=== PATIENT | male | born 1955 | race Caucasian/White ===

== ENCOUNTER 2020-04-07 20:36 | Emergency (ER) | payer MEDICARE, OTHER ==
[~2020-04-07] VITALS: Ht 170.2 cm; Wt 71.4 kg
[2020-04-07 22:15] VITALS: BP 115/84
== END 2020-04-08 00:23 | disposition home or self-care (01) ==
LOC: EMS 20:36
DX: F20.9 Schizophrenia, unspecified (principal)
CPT/HCPCS: Z7502

== ENCOUNTER 2023-04-03 17:12 | Emergency (ER) | payer MEDICARE, OTHER ==
[~2023-04-03] VITALS: Ht 182.9 cm; Wt 86.4 kg
[2023-04-03 17:45] VITALS: TEMP 98
[2023-04-03] MEDS ORDERED: LORazepam 2 MG/ML VIAL IM ONE (17:45)
[2023-04-03] MEDS ORDERED: DiphenhydrAMINE HCL 50 MG/ML VIAL IM ONE (17:45)
[2023-04-03] MEDS ORDERED: HALOPERIDOL LACTATE 5 MG/ML VIAL IM ONE (17:45)
[2023-04-03] MEDS ORDERED: PALI234D IM (17:56)
[2023-04-03] MEDS ORDERED: ACET-2247 PO (17:56)
[2023-04-03] MEDS ORDERED: DIVA500T53 PO (17:56)
[2023-04-03] MEDS ORDERED: QUET200T5 PO (17:56)
[2023-04-03] MEDS ORDERED: BISA10SU11 PR (17:56)
[2023-04-03] MEDS ORDERED: LEVO50 PO (17:56)
[2023-04-03 18:55] LABS: BASOPHILS % (AUTO) 0.4 % (0.0-2.0); EOSINOPHILS % (AUTO) 0.1 % (1.0-6.0); HEMATOCRIT 51.4 % (41-53); HEMOGLOBIN 17.3 g/dL (13.5-17.5); LYMPHOCYTES # (AUTO) 1.6 K/uL (1.0-4.8); LYMPHOCYTES % (AUTO) 19.5 % (22.0-44.0); MEAN CORPUSCULAR HEMOGLOBIN 33.9 pg (26.0-34.0); MEAN CORPUSCULAR HGB CONC 33.6 G/dL (31.0-37.0); MEAN CORPUSCULAR VOLUME 101 fL (80-100); MONOCYTES # (AUTO) 1.1 K/uL (0.1-1.0); MONOCYTES % (AUTO) 13.5 % (2.0-9.0); NEUTROPHILS # (AUTO) 5.5 K/uL (1.8-7.7); NEUTROPHILS % (AUTO) 66.5 % (40.0-70.0); PLATELET COUNT (AUTO) 239 K/uL (150-450); RED CELL DISTRIBUTION WIDTH 13.9 % (11.5-14.5)
[2023-04-03 19:00] LABS: ANION GAP 15 mmol/L (8-16); CARBON DIOXIDE 24 mmol/L (22-29); CHLORIDE 106 mmol/L (98-107); CREATININE 1.21 mg/dL (0.60-1.30); GLUCOSE,RANDOM 130 mg/dL (70-110); POTASSIUM 3.5 mmol/L (3.5-5.1); SODIUM SERUM 145 mmol/L (136-145)
[2023-04-03 19:01] LABS: CALCIUM, TOTAL 9.3 mg/dL (8.8-10.5); GLOMERULAR FILTR. RATE CALC 60 mL/min (>60)
[2023-04-03 19:06] LABS: ALANINE AMINOTRANSFERASE 7 U/L (12-78); ALBUMIN 3.5 g/dL (3.4-5.0); ALKALINE PHOSPHATASE 84 U/L (46-116); ASPARTATE AMINOTRANSFERASE 15 U/L (15-37); BILIRUBIN,TOTAL 0.6 mg/dL (0.1-1.0); TOTAL PROTEIN, SERUM 8.1 g/dL (6.4-8.2)
[2023-04-03] MEDS ORDERED: MELATONIN 5 MG TABLET PO ONE (20:00)
[2023-04-03] MEDS ORDERED: QUEtiapine FUMARATE 100 MG TABLET PO ONE (20:00)
[2023-04-03] MEDS ORDERED: DIVALPROEX SODIUM 500 MG ER TABLET PO ONE (20:00)
[2023-04-03] MEDS ORDERED: DIVA-112 PO (20:05)
[2023-04-03] MEDS ORDERED: CHLO100T36 PO (20:05)
[2023-04-03] MEDS ORDERED: QUET200T30 PO (20:05)
[2023-04-03] MEDS ORDERED: GABA600T10 PO (20:05)
[2023-04-03] MEDS ORDERED: ZOLPIDEM TARTRATE 10 MG TABLET PO ONE (22:00)
[2023-04-03] MEDS ORDERED: ZOLPIDEM TARTRATE 10 MG TABLET PO PRN (22:45)
[2023-04-03] MEDS ORDERED: LORazepam 2 MG TABLET PO PRN (22:45)
[2023-04-03] MEDS ORDERED: HALOPERIDOL 5 MG TABLET PO PRN (22:45)
[2023-04-04] MEDS ORDERED: DIVALPROEX SODIUM 500 MG ER TABLET PO ONE (15:30)
[2023-04-04] MEDS ORDERED: QUEtiapine FUMARATE 100 MG TABLET PO ONE (15:30)
[2023-04-04] MEDS ORDERED: LORazepam 2 MG/ML VIAL IM ONE (15:45)
[2023-04-04 15:48] VITALS: BP 130/81; PULSE 90; RESP 18
== END 2023-04-04 17:16 | disposition home or self-care (01) ==
LOC: EMS 17:59
DX: F20.0 Paranoid schizophrenia (principal); E78.00 Pure hypercholesterolemia, unspecified; I10 Essential (primary) hypertension; E03.9 Hypothyroidism, unspecified; Z88.0 Allergy status to penicillin; Z91.148 Patient's other noncompliance with medication regimen for other reason
CPT/HCPCS: 99285; 71045; 80053; 84484; 85025; 93005; 96372; G0480; J1200; J1630; J2060

== ENCOUNTER 2023-12-03 21:30 | Inpatient (IN) | payer MEDICARE, MEDICAID ==
[~2023-12-03] VITALS: Ht 180.3 cm; Wt 67.4 kg
[~2023-12-03 21:30] MED LIST: ARIP882S2 IM; LEVO50 PO; PARO10TA89 PO; VALP250C48 PO
[2023-12-03 22:17] LABS: COVID AG,FIA SOURCE NASAL SWAB
[2023-12-03 22:25] LABS: ANION GAP 10 mmol/L (8-16); CARBON DIOXIDE 26 mmol/L (22-29); CHLORIDE 103 mmol/L (98-107); CREATININE 0.91 mg/dL (0.60-1.30); GLOMERULAR FILTR. RATE CALC > 60 mL/min (>60); GLUCOSE,RANDOM 123 mg/dL (70-110); POTASSIUM 3.3 mmol/L (3.5-5.1); SODIUM SERUM 139 mmol/L (136-145); UREA NITROGEN, BLOOD 15 mg/dL (7-18)
[2023-12-03 22:30] LABS: ALANINE AMINOTRANSFERASE 15 U/L (12-78); ALBUMIN 3.4 g/dL (3.4-5.0); ALKALINE PHOSPHATASE 80 U/L (46-116); ASPARTATE AMINOTRANSFERASE 15 U/L (15-37); BILIRUBIN,TOTAL 0.4 mg/dL (0.1-1.0); TOTAL PROTEIN, SERUM 6.9 g/dL (6.4-8.2)
[2023-12-03 22:43] LABS: BASOPHILS % (AUTO) 0.5 % (0.0-2.0); EOSINOPHILS % (AUTO) 0.3 % (1.0-6.0); HEMATOCRIT 44.3 % (41-53); HEMOGLOBIN 15.4 g/dL (13.5-17.5); LYMPHOCYTES # (AUTO) 1.9 K/uL (1.0-4.8); LYMPHOCYTES % (AUTO) 19.8 % (22.0-44.0); MEAN CORPUSCULAR HEMOGLOBIN 35.5 pg (26.0-34.0); MEAN CORPUSCULAR HGB CONC 34.8 G/dL (31.0-37.0); MEAN CORPUSCULAR VOLUME 102 fL (80-100); MONOCYTES # (AUTO) 1.2 K/uL (0.1-1.0); MONOCYTES % (AUTO) 12.3 % (2.0-9.0); NEUTROPHILS # (AUTO) 6.6 K/uL (1.8-7.7); NEUTROPHILS % (AUTO) 67.1 % (40.0-70.0); PLATELET COUNT (AUTO) 238 K/uL (150-450); RED BLOOD CELL COUNT(AUTO) 4.35 MIL/uL (4.50-5.90); RED CELL DISTRIBUTION WIDTH 13.5 % (11.5-14.5); WHITE BLOOD COUNT (AUTO) 9.9 K/uL (4.5-11.0)
[2023-12-03 22:58] LABS: SARS-COV2 (COVID) ANTIGEN,FIA Negative (Negative)
[2023-12-03] MEDS ORDERED: HALOPERIDOL 5 MG TABLET PO PRN (23:15)
[2023-12-03 23:16] LABS: RBC MORPHOLOGY COMMENT ABNORMAL RBC MORPH
[2023-12-04 00:07] LABS: ALCOHOL, BLOOD (SERUM) < 3 mg/dL (0-10)
[2023-12-04] MEDS: POTASSIUM CHLORIDE 20 MEQ ER TABLET PO ONE (01:16)
[2023-12-04] MEDS: POTASSIUM CHLORIDE 10% 40 MEQ/30 ML LIQUID UDCUP PO ONE (01:26)
[2023-12-04] MEDS: DiphenhydrAMINE HCL 50 MG/ML VIAL IM ONE (04:49)
[2023-12-04] MEDS: LORazepam 2 MG/ML VIAL IM ONE (04:49)
[2023-12-04] MEDS: HALOPERIDOL LACTATE 5 MG/ML VIAL IM ONE (04:49)
[2023-12-04 05:46] LABS: APPEARANCE,URINE CLEAR (CLEAR); BILIRUBIN,URINE NEGATIVE (NEGATIVE); COLOR,URINE YELLOW (YELLOW); GLUCOSE, URINE (UA) NEGATIVE (NEGATIVE); KETONES,URINE NEGATIVE (NEGATIVE); LEUKOCYTE ESTERASE ,URINE LARGE (NEGATIVE); NITRATE,URINE POSITIVE (NEGATIVE); OCCULT BLOOD,URINE NEGATIVE (NEGATIVE); PH,URINE 5.5 (5.0-8.0); PH,URINE DRUG SCREEN 5.5 (5.0-8.0); PROTEIN,URINE TRACE mg/dL (NEGATIVE); SPECIFIC GRAVITIY, URINE 1.024 (1.003-1.030); UROBILINOGEN,URINE <=1.0 mg/dL (<=1.0)
[2023-12-04 06:03] LABS: ALCOHOL, URINE DRUG SCREEN NEGATIVE (NEGATIVE); AMPHET/METH SCREEN,URINE NEGATIVE (NEGATIVE); BARBITURATE SCREEN, URINE NEGATIVE (NEGATIVE); BENZODIAZEPINES SCREEN,URINE NEGATIVE (NEGATIVE); CANNABINOID SCREEN,URINE NEGATIVE (NEGATIVE); COCAINE SCREEN,URINE NEGATIVE (NEGATIVE); METHADONE SCREEN, URINE NEGATIVE (NEGATIVE); OPIATE SCREEN,URINE NEGATIVE (NEGATIVE); PHENCYCLIDINE SCREEN,URINE NEGATIVE (NEGATIVE)
[2023-12-04 06:14] LABS: BACTERIA,URINE Moderate /HPF (None Seen); SQUAMOUS EPITHELIAL CELL,UR Few /LPF (None Seen)
[2023-12-04] MEDS ORDERED: ONDANSETRON HCL 4 MG TABLET PO PRN (07:00)
[2023-12-04] MEDS ORDERED: MAGNESIUM HYDROXIDE SUSPENSION 30 ML UDCUP PO PRN (07:00)
[2023-12-04] MEDS ORDERED: DOCUSATE SODIUM 100 MG CAPSULE PO PRN (07:00)
[2023-12-04] MEDS ORDERED: IBUPROFEN 400 MG TABLET PO PRN (07:00)
[2023-12-04] MEDS ORDERED: NICOTINE 14 MG/24 HOUR PATCH TD PRN (07:00)
[2023-12-04] MEDS ORDERED: MAG HYDROX/ALUMINUM HYD/SIMETH ES 30 ML SUSPENSION UDCUP PO PRN (07:00)
[2023-12-04] MEDS ORDERED: GuaiFENesin/D-METHORPHAN [SUGAR-FREE] 200-20MG/10 ML SYRUP UDCUP PO PRN (07:00)
[2023-12-04] MEDS ORDERED: LEVOTHYROXINE SODIUM 50 MCG TABLET PO SCH (07:00)
[2023-12-04] MEDS ORDERED: ALBUTEROL SULFATE HFA 90 MCG/PUFF 8 GM INHALER IH PRN (07:00)
[2023-12-04] MEDS ORDERED: ACETAMINOPHEN 325 MG TABLET PO PRN (07:00)
[2023-12-04] MEDS ORDERED: PETROLATUM,WHITE 28 GM JELLY TP PRN (07:00)
[2023-12-04] MEDS ORDERED: CloNIDine HCL 0.1 MG TABLET PO PRN (07:00)
[2023-12-04] MEDS ORDERED: LOPERAMIDE HCL 2 MG CAPSULE PO PRN (07:00)
[2023-12-04 10:20] VITALS: BP 123/72; PULSE 89; RESP 16; TEMP 97.7; O2SAT 98
[2023-12-04 12:09] VITALS: BP 123/72; PULSE 89; RESP 16; TEMP 97.7
[2023-12-04] MEDS: CIPROFLOXACIN HCL 500 MG TABLET PO SCH (17:09)
[2023-12-04] MEDS: PARoxetine HCL 10 MG TABLET PO SCH (17:30)
[2023-12-04] MEDS: VALPROIC ACID 250 MG/5 ML SOLUTION UDCUP PO SCH (21:00)
[2023-12-05] MEDS: LEVOTHYROXINE SODIUM 50 MCG TABLET PO SCH (06:56)
[2023-12-05] MEDS ORDERED: VALPROIC ACID 250 MG/5 ML SOLUTION UDCUP PO ONE (15:00)
[2023-12-05] MEDS ORDERED: HALOPERIDOL LACTATE 5 MG/ML VIAL IM PRN (15:00)
[2023-12-05 21:00] VITALS: BP 114/73; PULSE 74; RESP 18; TEMP 97.6
[2023-12-06 10:09] VITALS: BP 96/58; PULSE 79; RESP 19; TEMP 98.4; O2SAT 98
[2023-12-06 21:05] VITALS: BP 102/71; PULSE 62; RESP 18; TEMP 97.1; O2SAT 97
[2023-12-07 07:36] LABS: THYROID STIMULATING HORMONE 3.62 uIU/mL (0.36-3.74)
[2023-12-07 07:38] LABS: CHOL/HDL RATIO 3.4 (4.2-7.3)
[2023-12-07 07:39] LABS: HEMOGLOBIN A1C 4.9 % (3.8-5.6)
[2023-12-07] MEDS: HALOPERIDOL LACTATE 5 MG/ML VIAL IM PRN (11:54)
[2023-12-07 21:30] VITALS: BP 95/64; PULSE 66; RESP 18; TEMP 97.8
[2023-12-08 12:18] VITALS: RESP 18
[2023-12-08 22:13] VITALS: BP 95/67; PULSE 98; RESP 18; TEMP 97.4
[2023-12-09 09:37] VITALS: BP 81/17; PULSE 81; RESP 17; TEMP 97.7
[2023-12-10] MEDS: LORazepam 2 MG TABLET PO PRN (00:37)
[2023-12-10 08:00] VITALS: BP 117/69; PULSE 103; RESP 18; TEMP 96
[2023-12-10 20:52] VITALS: RESP 18; TEMP 97.4
[2023-12-11 20:58] VITALS: RESP 18
[2023-12-12 11:56] VITALS: RESP 20
[2023-12-13 09:50] VITALS: RESP 18
[2023-12-13] MEDS ORDERED: LORazepam 2 MG/ML VIAL ONE (10:52)
[2023-12-13] MEDS ORDERED: DiphenhydrAMINE HCL 50 MG/ML VIAL ONE (10:53)
[2023-12-13] MEDS: DiphenhydrAMINE HCL 50 MG/ML VIAL IM ONE (11:04)
[2023-12-13] MEDS: LORazepam 2 MG/ML VIAL IM ONE (11:05)
[2023-12-13] MEDS: HALOPERIDOL LACTATE 5 MG/ML VIAL IM ONE (11:06)
[2023-12-13] MEDS: FluPHENAZine HCL 2.5 MG/ML INJ IM PRN (20:44)
[2023-12-13 21:09] VITALS: BP 97/60; PULSE 80; RESP 18; TEMP 97.9
[2023-12-14 09:01] VITALS: RESP 18
[2023-12-14 21:34] VITALS: BP 112/64; PULSE 94; RESP 18; TEMP 98
[2023-12-15 21:20] VITALS: RESP 18
[2023-12-16 09:51] VITALS: RESP 18; TEMP 97.6
[2023-12-16 21:07] VITALS: BP 93/64; PULSE 85; RESP 18; TEMP 97.2
[2023-12-17 08:00] VITALS: BP 101/62; PULSE 80; RESP 18; TEMP 97.1
[2023-12-17] MEDS: ARIPiprazole LAUROXIL ER SUSPENSION 882 MG/3.2 ML SYRINGE IM SCH (10:11)
[2023-12-17 23:04] VITALS: RESP 18
[2023-12-18 09:47] VITALS: BP 142/74; PULSE 72; RESP 18; TEMP 96.2
[2023-12-18 21:43] VITALS: RESP 18
[2023-12-19 11:18] VITALS: RESP 18
[2023-12-20 08:10] VITALS: BP 110/77; PULSE 93; RESP 18; TEMP 98.3
[2023-12-20 22:11] VITALS: BP 135/90; PULSE 99; RESP 19; TEMP 97.6
[2023-12-21 10:35] VITALS: RESP 18; TEMP 98
[2023-12-21 21:54] VITALS: RESP 18
[2023-12-22 09:00] VITALS: RESP 18
[2023-12-22 20:59] VITALS: RESP 18
[2023-12-23 08:00] VITALS: BP 120/74; PULSE 100; RESP 17; TEMP 97.9
[2023-12-25 18:00] VITALS: BP 101/59; TEMP 97.6
[2023-12-25 21:05] VITALS: BP 101/60; PULSE 68; RESP 18; TEMP 97.5
[2023-12-25] MEDS: ZOLPIDEM TARTRATE 10 MG TABLET PO PRN (21:44)
[2023-12-26 09:05] VITALS: RESP 19; TEMP 97
[2023-12-26 22:11] VITALS: RESP 18
[2023-12-27 11:08] VITALS: BP 107/59; PULSE 68; RESP 18; TEMP 97.3
[2023-12-27] MEDS ORDERED: FluPHENAZine HCL 2.5 MG/ML INJ IM PRN (13:45)
[2023-12-27] MEDS: FluPHENAZine HCL 5 MG TABLET PO SCH (16:04)
[2023-12-27 20:07] VITALS: BP 105/58; PULSE 88; RESP 20; TEMP 98
[2023-12-28 08:45] VITALS: RESP 18
[2023-12-28 21:12] VITALS: BP 153/96; PULSE 67; RESP 18; TEMP 97.3
[2023-12-29 13:18] VITALS: PULSE 87; TEMP 97.8
[2023-12-29] MEDS: FluPHENAZine DECANOATE 25 MG/ML IM SCH (18:38)
[2023-12-29 20:51] VITALS: BP 123/74; PULSE 62; RESP 18
[2023-12-30 08:00] VITALS: BP 122/69; PULSE 68; RESP 18; TEMP 98
[2023-12-30 21:00] VITALS: RESP 18
[2023-12-31 09:29] VITALS: RESP 18
== END 2023-12-31 18:31 | DRG 885 ==
LOC: EMS 21:32 → 3EX 12-04 03:15 → UNDOADMIN 12-04 03:15 → 3EX 12-04 03:16 → 3EI 12-15 15:01
PROVIDERS: ADMIT Psychiatry & Neurology Psychiatry; ATTEND Psychiatry & Neurology Psychiatry
PROC: GZHZZZZ Group Psychotherapy (ICD-10-PCS; principal; 2023-12-04)
PROC: GZ56ZZZ Individual Psychotherapy, Supportive (ICD-10-PCS; 2023-12-04)
DX: F25.0 Schizoaffective disorder, bipolar type (principal); E03.9 Hypothyroidism, unspecified; G20.A1 Parkinson's disease without dyskinesia, without mention of fluctuations; Z20.822 Contact with and (suspected) exposure to COVID-19; E78.00 Pure hypercholesterolemia, unspecified; I10 Essential (primary) hypertension; E87.6 Hypokalemia; R73.9 Hyperglycemia, unspecified; Z79.899 Other long term (current) drug therapy; Z88.8 Allergy status to other drugs, medicaments and biological substances; Z88.0 Allergy status to penicillin
CPT/HCPCS: 80053; 80061; 80307; 81001; 83036; 84132; 84443; 85025; 87081; 87086; 87186; 99285; G0378; G0480; J1200; J1630; J2060; J2680; J3490; Q9967

== ENCOUNTER 2024-02-09 15:27 | Inpatient (IN) | payer MEDICARE, MEDICAID ==
[~2024-02-09] VITALS: Ht 170.2 cm; Wt 72.2 kg
[~2024-02-09 15:27] MED LIST changes: +FLUP25VI5 IM; -PARO10TA89 PO; -VALP250C48 PO
[2024-02-09 18:16] LABS: BASOPHILS % (AUTO) 0.6 % (0.0-2.0); EOSINOPHILS % (AUTO) 1.5 % (1.0-6.0); HEMATOCRIT 45.1 % (41-53); HEMOGLOBIN 15.6 g/dL (13.5-17.5); LYMPHOCYTES # (AUTO) 2.3 K/uL (1.0-4.8); MEAN CORPUSCULAR HEMOGLOBIN 35.2 pg (26.0-34.0); MEAN CORPUSCULAR HGB CONC 34.6 G/dL (31.0-37.0); MEAN CORPUSCULAR VOLUME 102 fL (80-100); MONOCYTES # (AUTO) 0.6 K/uL (0.1-1.0); MONOCYTES % (AUTO) 8.9 % (2.0-9.0); NEUTROPHILS # (AUTO) 3.9 K/uL (1.8-7.7); PLATELET COUNT (AUTO) 240 K/uL (150-450); RED BLOOD CELL COUNT(AUTO) 4.43 MIL/uL (4.50-5.90); RED CELL DISTRIBUTION WIDTH 13.3 % (11.5-14.5); WHITE BLOOD COUNT (AUTO) 6.9 K/uL (4.5-11.0)
[2024-02-09 18:26] LABS: ANION GAP 9 mmol/L (8-16); CALCIUM, TOTAL 8.9 mg/dL (8.8-10.5); CARBON DIOXIDE 27 mmol/L (22-29); CHLORIDE 103 mmol/L (98-107); CREATININE 0.82 mg/dL (0.60-1.30); GLOMERULAR FILTR. RATE CALC > 60 mL/min (>60); GLUCOSE,RANDOM 101 mg/dL (70-110); POTASSIUM 3.7 mmol/L (3.5-5.1); SODIUM SERUM 139 mmol/L (136-145); UREA NITROGEN, BLOOD 16 mg/dL (7-18)
[2024-02-09 18:29] LABS: ALCOHOL, BLOOD (SERUM) < 3 mg/dL (0-10)
[2024-02-09 18:41] LABS: ALANINE AMINOTRANSFERASE 13 U/L (12-78); ALBUMIN 3.6 g/dL (3.4-5.0); ALKALINE PHOSPHATASE 99 U/L (46-116); ASPARTATE AMINOTRANSFERASE 14 U/L (15-37); BILIRUBIN,TOTAL 0.4 mg/dL (0.1-1.0); THYROID STIMULATING HORMONE 6.84 uIU/mL (0.36-3.74); TOTAL PROTEIN, SERUM 7.4 g/dL (6.4-8.2)
[2024-02-09 18:55] LABS: APPEARANCE,URINE CLEAR (CLEAR); BILIRUBIN,URINE NEGATIVE (NEGATIVE); COLOR,URINE LIGHT YELLOW (YELLOW); GLUCOSE, URINE (UA) NEGATIVE (NEGATIVE); KETONES,URINE NEGATIVE (NEGATIVE); LEUKOCYTE ESTERASE ,URINE NEGATIVE (NEGATIVE); NITRATE,URINE NEGATIVE (NEGATIVE); OCCULT BLOOD,URINE NEGATIVE (NEGATIVE); PH,URINE 5.5 (5.0-8.0); PH,URINE DRUG SCREEN 5.5 (5.0-8.0); PROTEIN,URINE NEGATIVE (NEGATIVE); SPECIFIC GRAVITIY, URINE 1.015 (1.003-1.030); UROBILINOGEN,URINE <=1.0 mg/dL (<=1.0)
[2024-02-09 19:02] LABS: ALCOHOL, URINE DRUG SCREEN NEGATIVE (NEGATIVE); AMPHET/METH SCREEN,URINE NEGATIVE (NEGATIVE); BARBITURATE SCREEN, URINE NEGATIVE (NEGATIVE); BENZODIAZEPINES SCREEN,URINE NEGATIVE (NEGATIVE); CANNABINOID SCREEN,URINE NEGATIVE (NEGATIVE); COCAINE SCREEN,URINE NEGATIVE (NEGATIVE); METHADONE SCREEN, URINE NEGATIVE (NEGATIVE); OPIATE SCREEN,URINE NEGATIVE (NEGATIVE); PHENCYCLIDINE SCREEN,URINE NEGATIVE (NEGATIVE)
[2024-02-09 19:49] LABS: COVID AG,FIA SOURCE NPH
[2024-02-09 20:14] LABS: SARS-COV2 (COVID) ANTIGEN,FIA Negative (Negative)
[2024-02-10 06:30] VITALS: O2SAT 97
[2024-02-10] MEDS ORDERED: ONDANSETRON 4 MG TABLET PO PRN (14:00)
[2024-02-10] MEDS ORDERED: LOPERAMIDE HCL 2 MG CAPSULE PO PRN (14:00)
[2024-02-10] MEDS ORDERED: PETROLATUM,WHITE 28 GM JELLY TP PRN (14:00)
[2024-02-10] MEDS ORDERED: DOCUSATE SODIUM 100 MG CAPSULE PO PRN (14:00)
[2024-02-10] MEDS ORDERED: CloNIDine HCL 0.1 MG TABLET PO PRN (14:00)
[2024-02-10] MEDS ORDERED: ALBUTEROL SULFATE HFA 90 MCG/PUFF 8 GM INHALER IH PRN (14:00)
[2024-02-10] MEDS ORDERED: NICOTINE 14 MG/24 HOUR PATCH TD PRN (14:00)
[2024-02-10] MEDS ORDERED: MAG HYDROX/ALUMINUM HYD/SIMETH ES 30 ML SUSPENSION UDCUP PO PRN (14:00)
[2024-02-10] MEDS ORDERED: GuaiFENesin/D-METHORPHAN [SUGAR-FREE] 200-20MG/10 ML SYRUP UDCUP PO PRN (14:00)
[2024-02-10 14:19] VITALS: BP 111/71; PULSE 94; RESP 18; TEMP 97.2; O2SAT 95
[2024-02-10] MEDS: FluPHENAZine DECANOATE 25 MG/ML IM SCH (17:49)
[2024-02-10 20:13] VITALS: BP 124/74; PULSE 87; RESP 20; TEMP 98.7; O2SAT 96
[2024-02-11] MEDS: LEVOTHYROXINE SODIUM 50 MCG TABLET PO SCH (06:30)
[2024-02-11 08:00] VITALS: BP 127/72; PULSE 92; RESP 18; TEMP 98.1; O2SAT 98
[2024-02-11 21:36] VITALS: RESP 20
[2024-02-12 08:06] VITALS: RESP 16
[2024-02-12 12:14] LABS: HEMOGLOBIN A1C 4.9 % (3.8-5.6)
[2024-02-12 13:15] LABS: CHOL/HDL RATIO 2.8 (4.2-7.3)
[2024-02-12 13:49] LABS: THYROID STIMULATING HORMONE 4.87 uIU/mL (0.36-3.74)
[2024-02-13 04:36] VITALS: RESP 17; TEMP 98; O2SAT 98
[2024-02-13 08:04] VITALS: RESP 16
[2024-02-13 22:21] VITALS: RESP 17; TEMP 97.2
[2024-02-14] MEDS: ZOLPIDEM TARTRATE 10 MG TABLET PO PRN (01:06)
[2024-02-14 09:07] VITALS: BP 101/63; PULSE 78; RESP 17; TEMP 98; O2SAT 99
[2024-02-14] MEDS: ARIPiprazole LAUROXIL ER SUSPENSION 1064 MG/3.9 ML SYRINGE IM ONE (09:12)
[2024-02-14 21:00] VITALS: RESP 18
[2024-02-15 08:26] VITALS: RESP 17
[2024-02-15 20:25] VITALS: BP 120/68; PULSE 93; RESP 18; TEMP 98.6; O2SAT 96
[2024-02-16 20:59] VITALS: RESP 18
[2024-02-16 23:28] VITALS: BP 113/66; PULSE 95; RESP 16; TEMP 98.7; O2SAT 100
[2024-02-17 08:05] VITALS: RESP 16
[2024-02-17 20:03] VITALS: BP 102/63; PULSE 90; RESP 16; TEMP 97.8; O2SAT 96
[2024-02-17 23:49] VITALS: RESP 17
[2024-02-18 08:50] VITALS: BP 118/66; PULSE 100; RESP 17; TEMP 98; O2SAT 100
[2024-02-18 22:38] VITALS: BP 117/71; PULSE 97; RESP 19; TEMP 98.2
[2024-02-19 08:08] VITALS: BP 130/88; PULSE 88; RESP 16; TEMP 98.6; O2SAT 97
[2024-02-19 20:36] VITALS: RESP 18
[2024-02-20 08:18] VITALS: BP 133/76; PULSE 115; RESP 17; TEMP 97.8; O2SAT 98
[2024-02-20 20:07] VITALS: RESP 18
[2024-02-21 08:11] VITALS: RESP 17
[2024-02-21 21:05] VITALS: BP 127/73; PULSE 79; RESP 18; TEMP 98.2; O2SAT 98
[2024-02-22] MEDS: LORazepam 2 MG TABLET PO PRN (14:51)
[2024-02-22 20:51] VITALS: BP 108/69; PULSE 99; RESP 18; TEMP 97.7; O2SAT 98
[2024-02-23 09:33] VITALS: RESP 18
[2024-02-23 20:41] VITALS: BP 112/65; PULSE 92; RESP 16; TEMP 98.1
[2024-02-24 10:06] VITALS: RESP 17
[2024-02-24 20:09] VITALS: BP 118/65; PULSE 101; RESP 20; TEMP 97.7; O2SAT 96
[2024-02-25 20:04] VITALS: BP 106/60; PULSE 90; RESP 16; TEMP 97.8; O2SAT 97
[2024-02-26 08:30] VITALS: RESP 16
[2024-02-26 20:05] VITALS: RESP 16
[2024-02-27 08:45] VITALS: BP 97/52; PULSE 91; RESP 16; TEMP 98.3; O2SAT 96
[2024-02-28 00:46] VITALS: BP 104/75; PULSE 106; RESP 17; TEMP 97.2; O2SAT 96
[2024-02-28 11:08] VITALS: RESP 18
[2024-02-28 20:07] VITALS: BP 117/74; PULSE 94; RESP 18; TEMP 98.1; O2SAT 95
[2024-02-29 08:00] VITALS: RESP 18
[2024-03-01 21:28] VITALS: BP 128/87; PULSE 96; RESP 16; TEMP 97.6; O2SAT 97
[2024-03-02 10:25] VITALS: RESP 16
[2024-03-02 20:23] VITALS: BP 106/66; PULSE 107; RESP 16; TEMP 96.6; O2SAT 97
[2024-03-03 09:28] VITALS: RESP 16
[2024-03-04 08:20] VITALS: BP 121/78; PULSE 87; RESP 18; TEMP 97.9; O2SAT 98
[2024-03-04] MEDS: MULTIVITAMINS WITH MINERALS, THERAPEUTIC TABLET PO SCH (08:33)
[2024-03-05 08:42] VITALS: BP 122/64; PULSE 105; RESP 18; TEMP 97.2; O2SAT 98
[2024-03-05 20:10] VITALS: RESP 20
[2024-03-06 08:15] VITALS: RESP 17
[2024-03-06 20:10] VITALS: BP 114/74; PULSE 98; RESP 20; TEMP 97.2; O2SAT 98
[2024-03-07 08:09] VITALS: RESP 18
[2024-03-07 21:23] VITALS: BP 128/70; PULSE 102; RESP 18; TEMP 97.5; O2SAT 96
[2024-03-08 08:32] VITALS: RESP 18
[2024-03-08 20:32] VITALS: BP 153/8; PULSE 98; TEMP 98.3; O2SAT 97
[2024-03-09 08:06] LABS: QUANTIFERON+, Nil Value 0.02 IU/mL; QUANTIFERON+,Mitogen Value >10.00 IU/mL; QUANTIFERON+,TB1 Antigen Value 0.04 IU/mL; QUANTIFERON+,TB2 Antigen Value 0.03 IU/mL; QUANTIFERON, TB GOLD PLUS Negative (Negative)
[2024-03-09 17:52] VITALS: RESP 16
[2024-03-09 20:30] VITALS: BP 124/71; PULSE 100; RESP 18; TEMP 97.7; O2SAT 98
[2024-03-10 08:21] VITALS: BP 138/74; PULSE 87; RESP 17; TEMP 97.7; O2SAT 100
[2024-03-10 12:40] VITALS: RESP 17
[2024-03-10] MEDS: IBUPROFEN 400 MG TABLET PO PRN (12:41)
[2024-03-10 13:38] VITALS: RESP 16
[2024-03-10 20:23] VITALS: BP 132/73; PULSE 103; RESP 18; TEMP 98.4; O2SAT 97
[2024-03-11 12:36] VITALS: RESP 18
[2024-03-11 23:52] VITALS: BP 118/70; PULSE 94; RESP 16; TEMP 97.4; O2SAT 96
[2024-03-12 10:05] VITALS: BP 128/63; PULSE 99; RESP 18; TEMP 97.5; O2SAT 99
[2024-03-12 20:00] VITALS: BP 103/66; PULSE 96; RESP 18; TEMP 98.5; O2SAT 96
[2024-03-13 09:06] VITALS: RESP 18
[2024-03-13] MEDS: ARIPiprazole LAUROXIL ER SUSPENSION 882 MG/3.2 ML SYRINGE IM SCH (09:44)
[2024-03-13] MEDS: MAGNESIUM HYDROXIDE SUSPENSION 30 ML UDCUP PO PRN (12:22)
[2024-03-13 20:48] VITALS: BP 122/56; PULSE 93; RESP 18; TEMP 98.2; O2SAT 100
[2024-03-14 20:14] VITALS: BP 122/64; PULSE 96; TEMP 98.1; O2SAT 96
[2024-03-15] MEDS: TUBERCULIN, PURIFIED PROTEIN DERIVATIVE 5 TU/0.1 ML SYRINGE ID ONE (06:39)
[2024-03-15 08:10] VITALS: BP 123/67; PULSE 101; RESP 18; TEMP 97.3; O2SAT 97
[2024-03-15 23:25] VITALS: BP 118/71; PULSE 100; RESP 18; TEMP 97.8; O2SAT 98
[2024-03-16 00:45] VITALS: BP 140/79; PULSE 100; RESP 18; TEMP 97.7; O2SAT 97
[2024-03-16 08:10] VITALS: RESP 18
[2024-03-16] MEDS ORDERED: HALOPERIDOL LACTATE 5 MG/ML VIAL ONE (08:36)
[2024-03-16] MEDS ORDERED: LORazepam 2 MG/ML VIAL ONE (08:36)
[2024-03-16] MEDS ORDERED: DiphenhydrAMINE HCL 50 MG/ML VIAL ONE (08:36)
[2024-03-16] MEDS: DiphenhydrAMINE HCL 50 MG/ML VIAL IM ONE (08:58)
[2024-03-16] MEDS: HALOPERIDOL LACTATE 5 MG/ML VIAL IM ONE (08:59)
[2024-03-16] MEDS: LORazepam 2 MG/ML VIAL IM ONE (09:04)
[2024-03-16 20:05] VITALS: BP 113/62; PULSE 93; RESP 19; TEMP 97.9; O2SAT 98
[2024-03-17 20:02] VITALS: BP 117/60; PULSE 95; RESP 18; TEMP 98.4
[2024-03-18 08:23] VITALS: RESP 18
[2024-03-18] MEDS: HALOPERIDOL 5 MG TABLET PO PRN (14:20)
[2024-03-18 21:02] VITALS: BP 101/72; PULSE 86; RESP 18; TEMP 97
[2024-03-19 09:11] VITALS: RESP 18
[2024-03-19 20:54] VITALS: BP 120/68; PULSE 103; RESP 18; TEMP 97.8; O2SAT 97
[2024-03-20 08:32] VITALS: BP 112/66; PULSE 96; RESP 17; TEMP 97.4; O2SAT 98
[2024-03-20 20:20] VITALS: BP 141/81; PULSE 104; RESP 18; TEMP 97.6; O2SAT 95
[2024-03-21 08:31] VITALS: RESP 18
[2024-03-21 20:05] VITALS: BP 112/68; PULSE 97; RESP 16; TEMP 98.6; O2SAT 98
[2024-03-22 08:20] LABS: BASOPHILS % (AUTO) 0.1 % (0.0-2.0); EOSINOPHILS % (AUTO) 0.6 % (1.0-6.0); HEMATOCRIT 47.2 % (41-53); LYMPHOCYTES # (AUTO) 1.7 K/uL (1.0-4.8); LYMPHOCYTES % (AUTO) 21.2 % (22.0-44.0); MEAN CORPUSCULAR HEMOGLOBIN 34.6 pg (26.0-34.0); MEAN CORPUSCULAR HGB CONC 33.8 G/dL (31.0-37.0); MEAN CORPUSCULAR VOLUME 102 fL (80-100); MONOCYTES # (AUTO) 0.8 K/uL (0.1-1.0); MONOCYTES % (AUTO) 10.4 % (2.0-9.0); NEUTROPHILS # (AUTO) 5.3 K/uL (1.8-7.7); NEUTROPHILS % (AUTO) 67.7 % (40.0-70.0); PLATELET COUNT (AUTO) 253 K/uL (150-450); RED BLOOD CELL COUNT(AUTO) 4.61 MIL/uL (4.50-5.90); WHITE BLOOD COUNT (AUTO) 7.9 K/uL (4.5-11.0)
[2024-03-22 08:30] LABS: ANION GAP 6 mmol/L (8-16); CARBON DIOXIDE 33 mmol/L (22-29); CHLORIDE 100 mmol/L (98-107); CREATININE 0.74 mg/dL (0.60-1.30); GLUCOSE,RANDOM 113 mg/dL (70-110); POTASSIUM 3.7 mmol/L (3.5-5.1); SODIUM SERUM 139 mmol/L (136-145); UREA NITROGEN, BLOOD 12 mg/dL (7-18)
[2024-03-22 08:31] LABS: CALCIUM, TOTAL 9.1 mg/dL (8.8-10.5); GLOMERULAR FILTR. RATE CALC > 60 mL/min (>60)
[2024-03-22] MEDS: ACETAMINOPHEN 325 MG TABLET PO PRN (08:38)
[2024-03-22 09:09] LABS: RBC MORPHOLOGY COMMENT ABNORMAL RBC MORPH
[2024-03-22] MEDS ORDERED: DiphenhydrAMINE HCL 50 MG/ML VIAL ONE (13:22)
[2024-03-22] MEDS ORDERED: LORazepam 2 MG/ML VIAL ONE (13:22)
[2024-03-22] MEDS ORDERED: HALOPERIDOL LACTATE 5 MG/ML VIAL ONE (13:22)
[2024-03-22] MEDS: DiphenhydrAMINE HCL 50 MG/ML VIAL IM ONE (13:31)
[2024-03-22] MEDS: HALOPERIDOL LACTATE 5 MG/ML VIAL IM ONE (13:33)
[2024-03-22] MEDS: LORazepam 2 MG/ML VIAL IM ONE (13:33)
[2024-03-22 16:14] VITALS: BP 115/64; PULSE 91; RESP 16; TEMP 96.9; O2SAT 99
[2024-03-22 20:09] VITALS: RESP 16
[2024-03-23 09:23] VITALS: RESP 18
[2024-03-24 08:31] VITALS: RESP 17
[2024-03-25 08:00] VITALS: RESP 16
[2024-03-25 20:08] VITALS: BP 142/75; PULSE 101; RESP 18; TEMP 97.8
[2024-03-26 09:44] VITALS: BP 105/56; PULSE 116; RESP 18; TEMP 97.7
[2024-03-26 20:27] VITALS: BP 130/70; PULSE 89; RESP 18; TEMP 97.7
[2024-03-27 13:31] VITALS: RESP 18
[2024-03-27 20:09] VITALS: BP 105/47; PULSE 93; RESP 16; TEMP 97.2; O2SAT 96
[2024-03-28 09:26] VITALS: BP 133/75; PULSE 109; RESP 17; TEMP 97.7; O2SAT 96
[2024-03-29 08:23] VITALS: BP 128/66; PULSE 95; RESP 18; TEMP 97.7; O2SAT 99
[2024-03-30 08:06] VITALS: RESP 15
[2024-03-31 13:18] VITALS: RESP 16
[2024-03-31 20:07] VITALS: BP 113/62; PULSE 94; RESP 18; TEMP 98.1
[2024-04-01 08:10] VITALS: RESP 18
[2024-04-01 20:01] VITALS: BP 114/79; PULSE 97; RESP 18; TEMP 97.8
[2024-04-02 09:50] VITALS: BP 132/72
[2024-04-02 20:21] VITALS: BP 131/95; PULSE 103; RESP 17; TEMP 97.3; O2SAT 98
[2024-04-03 21:08] VITALS: BP 130/76; PULSE 100; RESP 18; TEMP 98; O2SAT 96
[2024-04-04 08:24] VITALS: RESP 18
[2024-04-04 21:40] VITALS: BP 132/82; PULSE 98; RESP 18; TEMP 97.6; O2SAT 96
[2024-04-05 08:20] VITALS: BP 130/76; PULSE 102; RESP 17; TEMP 97.4; O2SAT 99
[2024-04-05 20:00] VITALS: BP 134/72; PULSE 84; RESP 18; TEMP 97.5; O2SAT 98
[2024-04-06 08:21] VITALS: RESP 18
[2024-04-06 20:20] VITALS: BP 130/68; PULSE 108; RESP 18; TEMP 97.8; O2SAT 95
[2024-04-07 08:44] VITALS: RESP 18
[2024-04-08 13:01] VITALS: RESP 18
[2024-04-08 20:20] VITALS: BP 137/72; PULSE 95; RESP 18; TEMP 97.1; O2SAT 98
[2024-04-09 08:30] VITALS: BP 101/60; PULSE 95; RESP 16; TEMP 98.2; O2SAT 96
[2024-04-09 20:13] VITALS: RESP 18
[2024-04-10 08:00] VITALS: RESP 18
[2024-04-10 20:14] VITALS: RESP 18
[2024-04-11 09:50] VITALS: RESP 18
[2024-04-12 08:21] VITALS: RESP 18
[2024-04-14 09:13] VITALS: BP 124/63; PULSE 94; RESP 18; TEMP 97.7; O2SAT 96
[2024-04-14 20:00] VITALS: BP 123/62; PULSE 95; RESP 18; TEMP 97.8; O2SAT 95
[2024-04-15 08:57] VITALS: RESP 17
[2024-04-16 08:19] VITALS: RESP 18
[2024-04-16 20:24] VITALS: BP 104/54; PULSE 81; RESP 16; TEMP 97.6; O2SAT 95
[2024-04-17 08:32] VITALS: RESP 19
[2024-04-18 08:06] VITALS: BP 131/88; PULSE 97; RESP 17; TEMP 96.6; O2SAT 98
[2024-04-18 20:15] VITALS: BP 140/81; PULSE 98; RESP 18; TEMP 98; O2SAT 98
[2024-04-19 20:11] VITALS: BP 123/73; PULSE 98; RESP 18; TEMP 97.6; O2SAT 95
[2024-04-20 20:00] VITALS: BP 121/70; PULSE 102; RESP 17; TEMP 97.5; O2SAT 96
[2024-04-21 08:07] VITALS: RESP 18
[2024-04-21 20:00] VITALS: BP 124/83; PULSE 91; RESP 17; TEMP 98.2; O2SAT 97
[2024-04-22 11:01] VITALS: BP 103/61; PULSE 86; RESP 16; TEMP 97.5; O2SAT 96
[2024-04-22 22:55] VITALS: RESP 18
[2024-04-23 08:01] VITALS: RESP 17
[2024-04-23 08:05] VITALS: TEMP 97.6
[2024-04-23 20:01] VITALS: RESP 16
[2024-04-24 08:54] VITALS: BP 103/54; PULSE 90; RESP 18; TEMP 98; O2SAT 97
[2024-04-24 22:17] VITALS: RESP 18
[2024-04-25 08:00] VITALS: RESP 18
[2024-04-25 20:13] VITALS: RESP 18
[2024-04-26 09:04] LABS: ANION GAP 7 mmol/L (8-16); CALCIUM, TOTAL 9.2 mg/dL (8.8-10.5); CARBON DIOXIDE 31 mmol/L (22-29); CHLORIDE 102 mmol/L (98-107); CREATININE 0.74 mg/dL (0.60-1.30); GLOMERULAR FILTR. RATE CALC > 60 mL/min (>60); GLUCOSE,RANDOM 81 mg/dL (70-110); POTASSIUM 3.6 mmol/L (3.5-5.1); SODIUM SERUM 140 mmol/L (136-145); UREA NITROGEN, BLOOD 13 mg/dL (7-18)
[2024-04-26 09:10] LABS: BASOPHILS % (AUTO) 0.6 % (0.0-2.0); HEMATOCRIT 48.8 % (41-53); HEMOGLOBIN 16.4 g/dL (13.5-17.5); LYMPHOCYTES # (AUTO) 1.7 K/uL (1.0-4.8); LYMPHOCYTES % (AUTO) 28.1 % (22.0-44.0); MEAN CORPUSCULAR HEMOGLOBIN 34.5 pg (26.0-34.0); MEAN CORPUSCULAR HGB CONC 33.5 G/dL (31.0-37.0); MEAN CORPUSCULAR VOLUME 103 fL (80-100); MONOCYTES # (AUTO) 0.5 K/uL (0.1-1.0); MONOCYTES % (AUTO) 8.5 % (2.0-9.0); NEUTROPHILS # (AUTO) 3.8 K/uL (1.8-7.7); NEUTROPHILS % (AUTO) 61.8 % (40.0-70.0); PLATELET COUNT (AUTO) 238 K/uL (150-450); RED BLOOD CELL COUNT(AUTO) 4.75 MIL/uL (4.50-5.90); RED CELL DISTRIBUTION WIDTH 13.2 % (11.5-14.5); WHITE BLOOD COUNT (AUTO) 6.2 K/uL (4.5-11.0)
[2024-04-26 11:34] LABS: RBC MORPHOLOGY COMMENT ABNORMAL RBC MORPH
[2024-04-26 12:16] VITALS: RESP 17
[2024-04-26 20:10] VITALS: BP 104/61; PULSE 84; RESP 18; TEMP 97.7; O2SAT 96
[2024-04-27 08:19] VITALS: BP 117/68; PULSE 79; RESP 16; TEMP 98.3; O2SAT 96
[2024-04-27 20:31] VITALS: BP 107/59; PULSE 92; RESP 16; TEMP 97; O2SAT 95
[2024-04-28 08:14] VITALS: BP 127/74; PULSE 87; RESP 17; TEMP 98.5; O2SAT 96
[2024-04-29] MEDS ORDERED: DOCUSATE SODIUM 100 MG CAPSULE PO PRN (15:00)
[2024-04-29] MEDS ORDERED: LOPERAMIDE HCL 2 MG CAPSULE PO PRN (15:00)
[2024-04-29] MEDS ORDERED: ONDANSETRON 4 MG TABLET PO PRN (15:00)
[2024-04-29] MEDS ORDERED: PETROLATUM,WHITE 28 GM JELLY TP PRN (15:00)
[2024-04-29] MEDS ORDERED: ALBUTEROL SULFATE HFA 90 MCG/PUFF 8 GM INHALER IH PRN (15:00)
[2024-04-29] MEDS ORDERED: GuaiFENesin/D-METHORPHAN [SUGAR-FREE] 200-20MG/10 ML SYRUP UDCUP PO PRN (15:00)
[2024-04-29] MEDS ORDERED: CloNIDine HCL 0.1 MG TABLET PO PRN (15:00)
[2024-04-29] MEDS ORDERED: NICOTINE 14 MG/24 HOUR PATCH TD PRN (15:00)
[2024-04-29 20:12] VITALS: BP 111/66; PULSE 83; RESP 18; TEMP 97.5; O2SAT 97
[2024-04-30 08:00] VITALS: BP 107/60; PULSE 69; RESP 18; TEMP 96.8; O2SAT 97
[2024-04-30 08:33] LABS: CHOL/HDL RATIO 2.6 (4.2-7.3); THYROID STIMULATING HORMONE 6.25 uIU/mL (0.36-3.74)
[2024-04-30 20:08] VITALS: BP 99/61; PULSE 80; RESP 18; TEMP 97.7
[2024-05-01 08:18] VITALS: BP 118/70; PULSE 86; RESP 18; TEMP 97; O2SAT 97
[2024-05-01 22:16] VITALS: BP 130/71; PULSE 100; RESP 16; TEMP 98; O2SAT 96
[2024-05-02] MEDS: LEVOTHYROXINE SODIUM 100 MCG TABLET PO SCH (06:29)
[2024-05-02 09:25] LABS: APPEARANCE,URINE CLEAR (CLEAR); BILIRUBIN,URINE NEGATIVE (NEGATIVE); COLOR,URINE COLORLESS (YELLOW); GLUCOSE, URINE (UA) NEGATIVE (NEGATIVE); KETONES,URINE NEGATIVE (NEGATIVE); LEUKOCYTE ESTERASE ,URINE NEGATIVE (NEGATIVE); NITRATE,URINE NEGATIVE (NEGATIVE); OCCULT BLOOD,URINE NEGATIVE (NEGATIVE); PH,URINE 6.5 (5.0-8.0); PH,URINE DRUG SCREEN 6.5 (5.0-8.0); PROTEIN,URINE NEGATIVE (NEGATIVE); SPECIFIC GRAVITIY, URINE 1.004 (1.003-1.030); UROBILINOGEN,URINE <=1.0 mg/dL (<=1.0)
[2024-05-02 09:37] LABS: ALCOHOL, URINE DRUG SCREEN NEGATIVE (NEGATIVE); AMPHET/METH SCREEN,URINE NEGATIVE (NEGATIVE); BARBITURATE SCREEN, URINE NEGATIVE (NEGATIVE); BENZODIAZEPINES SCREEN,URINE NEGATIVE (NEGATIVE); CANNABINOID SCREEN,URINE NEGATIVE (NEGATIVE); COCAINE SCREEN,URINE NEGATIVE (NEGATIVE); METHADONE SCREEN, URINE NEGATIVE (NEGATIVE); OPIATE SCREEN,URINE NEGATIVE (NEGATIVE); PHENCYCLIDINE SCREEN,URINE NEGATIVE (NEGATIVE)
[2024-05-02 20:21] VITALS: BP 126/67; PULSE 87; RESP 18; TEMP 98.1; O2SAT 97
[2024-05-03 08:05] VITALS: BP 124/66; PULSE 88; RESP 16; TEMP 98.3; O2SAT 98
[2024-05-03 20:01] VITALS: BP 118/69; PULSE 99; RESP 18; TEMP 97.9
[2024-05-04 08:07] VITALS: BP 124/75; PULSE 82; RESP 17; TEMP 98.1; O2SAT 97
[2024-05-04 20:05] VITALS: BP 118/68; PULSE 98; RESP 17; TEMP 97.5; O2SAT 97
[2024-05-05 08:17] VITALS: BP 103/60; PULSE 80; RESP 14; TEMP 97.3; O2SAT 99
[2024-05-05 09:05] LABS: ANION GAP 4 mmol/L (8-16); CALCIUM, TOTAL 8.6 mg/dL (8.8-10.5); CARBON DIOXIDE 33 mmol/L (22-29); CHLORIDE 102 mmol/L (98-107); CREATININE 0.73 mg/dL (0.60-1.30); GLOMERULAR FILTR. RATE CALC > 60 mL/min (>60); GLUCOSE,RANDOM 82 mg/dL (70-110); POTASSIUM 3.3 mmol/L (3.5-5.1); SODIUM SERUM 139 mmol/L (136-145); UREA NITROGEN, BLOOD 11 mg/dL (7-18)
[2024-05-05 09:37] LABS: EOSINOPHILS % (AUTO) 1.6 % (1.0-6.0); HEMATOCRIT 45.5 % (41-53); HEMOGLOBIN 15.3 g/dL (13.5-17.5); LYMPHOCYTES # (AUTO) 1.9 K/uL (1.0-4.8); LYMPHOCYTES % (AUTO) 32.1 % (22.0-44.0); MEAN CORPUSCULAR HEMOGLOBIN 34.4 pg (26.0-34.0); MEAN CORPUSCULAR HGB CONC 33.6 G/dL (31.0-37.0); MEAN CORPUSCULAR VOLUME 103 fL (80-100); MONOCYTES # (AUTO) 0.6 K/uL (0.1-1.0); MONOCYTES % (AUTO) 10.3 % (2.0-9.0); NEUTROPHILS # (AUTO) 3.2 K/uL (1.8-7.7); PLATELET COUNT (AUTO) 238 K/uL (150-450); RED BLOOD CELL COUNT(AUTO) 4.43 MIL/uL (4.50-5.90); WHITE BLOOD COUNT (AUTO) 5.9 K/uL (4.5-11.0)
[2024-05-05 10:18] LABS: RBC MORPHOLOGY COMMENT ABNORMAL RBC MORPH
[2024-05-05] MEDS: POTASSIUM CHLORIDE 20 MEQ ER TABLET PO ONE (17:15)
[2024-05-06 08:02] VITALS: RESP 18
[2024-05-06 21:12] VITALS: BP 108/70; PULSE 85; RESP 16; TEMP 97.9
[2024-05-07 08:03] VITALS: BP 127/65; PULSE 92; RESP 18; TEMP 97.9; O2SAT 96
[2024-05-07 20:01] VITALS: BP 113/61; PULSE 93; RESP 16; TEMP 98.1; O2SAT 98
[2024-05-08 08:24] VITALS: RESP 18
[2024-05-09 08:19] VITALS: RESP 18
[2024-05-10 08:14] VITALS: RESP 18
[2024-05-10 20:01] VITALS: RESP 20; TEMP 98.2
[2024-05-11 08:07] VITALS: RESP 17
[2024-05-12 08:10] VITALS: BP 124/61; PULSE 67; RESP 18; TEMP 96.7; O2SAT 97
[2024-05-12 20:00] VITALS: RESP 18
[2024-05-12 23:58] VITALS: BP 117/64; PULSE 87; RESP 16; TEMP 98.2; O2SAT 98
[2024-05-13] MEDS: ACETAMINOPHEN 325 MG TABLET PO PRN
[2024-05-13 08:19] VITALS: RESP 18
[2024-05-14 08:36] VITALS: RESP 18
[2024-05-14 20:03] VITALS: BP 122/71; PULSE 98; RESP 19; TEMP 97.8; O2SAT 97
[2024-05-15 20:01] VITALS: BP 141/78; PULSE 104; RESP 19; TEMP 97.8; O2SAT 96
[2024-05-16 08:07] VITALS: RESP 18
[2024-05-16 20:12] VITALS: BP 127/72; PULSE 96; RESP 16; TEMP 97.6; O2SAT 96
[2024-05-17 01:23] VITALS: BP 127/72; PULSE 92; RESP 18; TEMP 97.7; O2SAT 96
[2024-05-17 08:25] VITALS: BP 117/61; PULSE 97; RESP 17; TEMP 97.1; O2SAT 97
[2024-05-17 20:22] VITALS: BP 117/2; PULSE 100; RESP 16; TEMP 96.1; O2SAT 96
[2024-05-17 22:23] VITALS: BP 121/71; RESP 16
[2024-05-18 08:01] VITALS: RESP 16
[2024-05-19 08:23] VITALS: BP 119/70; PULSE 116; RESP 18; TEMP 96.5; O2SAT 98
[2024-05-19] MEDS: MAG HYDROX/ALUMINUM HYD/SIMETH ES 30 ML SUSPENSION UDCUP PO PRN (19:03)
[2024-05-19 20:00] VITALS: BP 125/68; PULSE 81; RESP 17; TEMP 98.2; O2SAT 99
[2024-05-20 08:07] VITALS: BP 129/67; PULSE 96; RESP 18; TEMP 98.2; O2SAT 96
[2024-05-21 08:21] VITALS: BP 120/63; PULSE 81; RESP 18; TEMP 97.9; O2SAT 97
[2024-05-21 20:42] VITALS: RESP 18
[2024-05-22 07:58] VITALS: BP 137/73; PULSE 76; RESP 18; TEMP 96.4; O2SAT 96
[2024-05-22 14:08] VITALS: BP 137/73; PULSE 76; RESP 18; TEMP 96.4; O2SAT 96
[2024-05-22 20:00] VITALS: BP 115/84; PULSE 90; RESP 18; TEMP 96.4; O2SAT 97
[2024-05-23 08:06] VITALS: BP 112/69; PULSE 82; RESP 18; TEMP 96.5; O2SAT 96
[2024-05-23 20:01] VITALS: RESP 20
[2024-05-24 10:35] VITALS: BP 138/81; PULSE 90; RESP 18; TEMP 96.6; O2SAT 98
[2024-05-24 20:00] VITALS: BP 119/73; PULSE 99; RESP 20; TEMP 97.6; O2SAT 97
[2024-05-25 08:41] VITALS: RESP 18
[2024-05-25] MEDS: ESCITALOPRAM OXALATE 10 MG TABLET PO SCH (11:00)
[2024-05-25] MEDS: FluPHENAZine DECANOATE 25 MG/ML IM SCH (16:15)
[2024-05-26 09:48] VITALS: RESP 16
[2024-05-26 20:05] VITALS: BP 120/71; PULSE 71; RESP 18; TEMP 97.4; O2SAT 98
[2024-05-27 08:02] VITALS: RESP 20
[2024-05-27 20:00] VITALS: BP 124/70; PULSE 100; RESP 18; TEMP 97.4; O2SAT 97
[2024-05-28 08:07] VITALS: RESP 20
[2024-05-28 20:05] VITALS: RESP 20; TEMP 98; O2SAT 96
[2024-05-29 08:07] VITALS: BP 118/65; PULSE 82; RESP 17; TEMP 98; O2SAT 98
[2024-05-29 20:04] VITALS: RESP 16
[2024-05-30 08:15] VITALS: RESP 17
[2024-05-30 20:20] VITALS: BP 125/69; PULSE 82; RESP 16; TEMP 97.3; O2SAT 97
[2024-05-31 08:32] VITALS: RESP 18
[2024-05-31] MEDS ORDERED: LORazepam 2 MG/ML VIAL ONE (13:37)
[2024-05-31] MEDS: DiphenhydrAMINE HCL 50 MG/ML VIAL IM ONE (14:00)
[2024-05-31] MEDS: ChlorproMAZINE HCL 50 MG/2 ML AMP IM ONE (14:00)
[2024-05-31] MEDS: LORazepam 2 MG/ML VIAL IM ONE (14:01)
[2024-05-31 20:52] VITALS: BP 126/74; PULSE 104; RESP 18; TEMP 97; O2SAT 97
[2024-06-01] MEDS: MAGNESIUM HYDROXIDE SUSPENSION 30 ML UDCUP PO PRN (09:04)
[2024-06-01 09:32] VITALS: BP 101/59; PULSE 101; RESP 14; TEMP 97.9; O2SAT 94
[2024-06-01 20:00] VITALS: RESP 18
[2024-06-02 08:04] VITALS: BP 126/69; PULSE 105; RESP 18; TEMP 97; O2SAT 96
[2024-06-02 20:03] VITALS: RESP 20; TEMP 98
[2024-06-03 10:46] VITALS: BP 109/60; PULSE 81; RESP 19; TEMP 97.7; O2SAT 98
[2024-06-03 20:05] VITALS: BP 99/59; PULSE 96; RESP 18; TEMP 98; O2SAT 95
[2024-06-04 20:24] VITALS: BP 128/64; PULSE 86; RESP 18; TEMP 97.8; O2SAT 98
[2024-06-05 09:11] VITALS: PULSE 84; RESP 17; TEMP 98.1; O2SAT 99
[2024-06-05 20:53] VITALS: BP 129/74; PULSE 66; RESP 18; TEMP 97.8; O2SAT 99
[2024-06-06 08:16] VITALS: RESP 17
[2024-06-06 20:15] VITALS: BP 121/70; PULSE 81; RESP 18; TEMP 98
[2024-06-07 08:18] VITALS: RESP 18
[2024-06-07 20:06] VITALS: BP 125/69; PULSE 88; RESP 18; TEMP 97.4; O2SAT 98
[2024-06-08 00:25] VITALS: BP 117/62; PULSE 97; RESP 18; TEMP 97.6; O2SAT 95
[2024-06-08] MEDS: IBUPROFEN 400 MG TABLET PO PRN (00:25)
[2024-06-08 08:03] VITALS: BP 126/64; PULSE 97; RESP 17; TEMP 97.7; O2SAT 99
[2024-06-08 20:01] VITALS: RESP 16
[2024-06-09 08:02] VITALS: BP 113/68; PULSE 85; RESP 16; TEMP 97.4; O2SAT 97
[2024-06-09 20:01] VITALS: BP 115/72; PULSE 65; RESP 16; TEMP 97.6; O2SAT 98
[2024-06-10 08:01] VITALS: BP 110/63; PULSE 83; RESP 17; TEMP 98; O2SAT 99
[2024-06-10 20:07] VITALS: BP 102/59; PULSE 66; RESP 18; TEMP 97.6; O2SAT 96
[2024-06-11 08:30] VITALS: RESP 18
[2024-06-11 23:04] VITALS: RESP 17
[2024-06-12 08:30] VITALS: BP 127/81; PULSE 94; RESP 17; TEMP 98.2; O2SAT 98
[2024-06-12 20:34] VITALS: BP 135/94; PULSE 103; RESP 18; TEMP 98; O2SAT 98
[2024-06-13 08:30] VITALS: BP 101/63; PULSE 75; RESP 16; TEMP 97.6; O2SAT 98
[2024-06-13 20:27] VITALS: BP 128/80; PULSE 76; RESP 18; TEMP 97.8; O2SAT 97
[2024-06-14 07:42] VITALS: BP 124/59; PULSE 83; RESP 17; TEMP 96.6; O2SAT 98
[2024-06-14 08:04] VITALS: BP 124/59; PULSE 83; RESP 17; TEMP 96.6; O2SAT 98
[2024-06-14 20:26] VITALS: RESP 16
[2024-06-15 10:21] VITALS: BP 118/63; PULSE 81; RESP 16; TEMP 97.5
[2024-06-15 21:16] VITALS: BP 122/66; RESP 16
[2024-06-16 08:01] VITALS: RESP 17
[2024-06-16 20:06] VITALS: BP 110/67; PULSE 85; RESP 18; TEMP 98
[2024-06-17 08:47] VITALS: BP 129/60; PULSE 89; RESP 17; TEMP 97.2
[2024-06-17 20:13] VITALS: BP 120/62; PULSE 96; RESP 18; TEMP 96.3; O2SAT 96
[2024-06-18 08:28] VITALS: RESP 17
[2024-06-18 20:46] VITALS: BP 112/66; PULSE 88; RESP 18; TEMP 97.6; O2SAT 98
[2024-06-19 10:06] VITALS: BP 116/64; PULSE 83; RESP 17; TEMP 97.8; O2SAT 98
[2024-06-19 20:13] VITALS: BP 124/68; PULSE 81; RESP 16; TEMP 98; O2SAT 97
[2024-06-20 09:54] VITALS: BP 120/68; PULSE 92; RESP 16; TEMP 97.6; O2SAT 96
[2024-06-20 20:57] VITALS: BP 107/87; PULSE 87; RESP 18; TEMP 97.4; O2SAT 97
[2024-06-21 08:01] VITALS: RESP 16
[2024-06-21 20:02] VITALS: BP 118/58; PULSE 81; RESP 16; TEMP 97
[2024-06-22 08:38] VITALS: BP 116/54; PULSE 84; RESP 17; TEMP 96.7; O2SAT 99
[2024-06-22 21:11] VITALS: BP 115/57; PULSE 93; RESP 18; TEMP 97.3; O2SAT 96
[2024-06-23 08:17] VITALS: BP 100/50; PULSE 92; RESP 18; TEMP 97.4; O2SAT 95
[2024-06-23 22:51] VITALS: BP 126/69; PULSE 91; RESP 18; TEMP 97.6; O2SAT 96
[2024-06-24] MEDS ORDERED: LORazepam 2 MG/ML VIAL ONE (18:21)
[2024-06-24] MEDS ORDERED: HALOPERIDOL LACTATE 5 MG/ML VIAL ONE (18:21)
[2024-06-24] MEDS ORDERED: DiphenhydrAMINE HCL 50 MG/ML VIAL ONE (18:21)
[2024-06-24] MEDS: LORazepam 2 MG/ML VIAL IM ONE (18:28)
[2024-06-24] MEDS: HALOPERIDOL LACTATE 5 MG/ML VIAL IM ONE (18:29)
[2024-06-24] MEDS: DiphenhydrAMINE HCL 50 MG/ML VIAL IM ONE (18:29)
[2024-06-24 20:18] VITALS: BP 110/58; PULSE 104; RESP 18; TEMP 97.7; O2SAT 95
[2024-06-25 08:00] VITALS: RESP 18
[2024-06-25 19:17] VITALS: RESP 18
[2024-06-25 20:01] VITALS: RESP 18
[2024-06-26 08:00] VITALS: RESP 18
[2024-06-26 21:04] VITALS: BP 102/63; PULSE 80; RESP 18; TEMP 97.3; O2SAT 95
[2024-06-27 16:06] VITALS: BP 140/68; PULSE 78; RESP 18; TEMP 97.6; O2SAT 98
[2024-06-27 20:05] VITALS: BP 90/60; PULSE 83; RESP 18; TEMP 96.6; O2SAT 96
[2024-06-28 08:08] VITALS: RESP 16
[2024-06-28 20:25] VITALS: PULSE 74; RESP 17; TEMP 97.7; O2SAT 96
[2024-06-29 20:53] VITALS: RESP 17; TEMP 97.7
[2024-06-30 08:02] VITALS: RESP 17
[2024-06-30 20:00] VITALS: BP 105/67; PULSE 90; RESP 16; TEMP 98.2; O2SAT 98
[2024-07-01 08:00] VITALS: RESP 16
[2024-07-01] MEDS: ESCITALOPRAM OXALATE 10 MG TABLET PO SCH (08:08)
[2024-07-01 16:26] VITALS: BP 111/64; PULSE 67; RESP 18; TEMP 97.2; O2SAT 96
[2024-07-01 23:40] VITALS: BP 117/64; PULSE 64; RESP 17; TEMP 97.2; O2SAT 96
[2024-07-02 08:01] VITALS: BP 102/52; PULSE 83; RESP 16; TEMP 98; O2SAT 97
[2024-07-02 20:44] VITALS: BP 116/66; PULSE 66; RESP 18; TEMP 97.8; O2SAT 98
[2024-07-03 08:00] VITALS: BP 106/62; PULSE 97; RESP 17; TEMP 97.4; O2SAT 97
[2024-07-03 20:23] VITALS: BP 112/55; PULSE 91; RESP 16; TEMP 96.1; O2SAT 96
[2024-07-04 20:06] VITALS: BP 111/65; PULSE 82; RESP 18; TEMP 97.7; O2SAT 94
[2024-07-05 09:02] VITALS: BP 96/58; PULSE 68; RESP 13; TEMP 97.4; O2SAT 95
[2024-07-06] VITALS (9 sets, daily range): BP systolic 100–149; BP diastolic 53–99; PULSE 80–104; RESP 16–20; TEMP 97.2–98.1; O2SAT 96–98
[2024-07-07] VITALS (8 sets, daily range): BP systolic 94–114; BP diastolic 45–62; PULSE 72–91; RESP 16–18; TEMP 97.3; O2SAT 96–97
[2024-07-08 08:21] VITALS: RESP 17
[2024-07-08 20:04] VITALS: BP 107/62; PULSE 99; RESP 18; TEMP 97.1; O2SAT 97
[2024-07-09 08:19] VITALS: RESP 18
[2024-07-09 21:14] VITALS: RESP 18
[2024-07-10 08:01] VITALS: BP 121/67; PULSE 89; RESP 16; TEMP 98.4; O2SAT 98
[2024-07-10 23:59] VITALS: RESP 18
[2024-07-11 09:31] VITALS: RESP 18
[2024-07-11 21:33] VITALS: RESP 16
[2024-07-12 08:07] VITALS: BP 105/64; PULSE 74; RESP 18; TEMP 97.8; O2SAT 97
[2024-07-12] MEDS ORDERED: DiphenhydrAMINE HCL 50 MG/ML VIAL ONE (10:29)
[2024-07-12 23:05] VITALS: BP 124/64; PULSE 95; RESP 18; TEMP 96.7; O2SAT 96
[2024-07-13 08:15] VITALS: BP 134/69; PULSE 86; RESP 16; TEMP 97; O2SAT 97
[2024-07-13 20:00] VITALS: BP 99/63; PULSE 79; RESP 16; TEMP 97.1; O2SAT 97
[2024-07-14 08:01] VITALS: BP 128/65; PULSE 85; RESP 16; TEMP 97.6; O2SAT 96
[2024-07-15 08:43] VITALS: BP 128/60; PULSE 91; RESP 18; TEMP 96; O2SAT 98
[2024-07-15 20:00] VITALS: BP 124/71; PULSE 73; RESP 16; TEMP 97; O2SAT 97
[2024-07-16 07:52] VITALS: BP 129/62; PULSE 76; RESP 17; TEMP 98; O2SAT 98
[2024-07-16 08:01] VITALS: BP 129/62; PULSE 76; RESP 17; TEMP 98; O2SAT 98
[2024-07-16 20:10] VITALS: BP 123/66; PULSE 71; RESP 18; TEMP 97.6; O2SAT 95
[2024-07-17 08:55] VITALS: BP 143/63; PULSE 86; RESP 16; TEMP 97.1; O2SAT 97
[2024-07-17] MEDS ORDERED: ARIP882S2 IM (10:28)
[2024-07-17] MEDS ORDERED: FLUP25VI5 IM (10:30)
[2024-07-17] MEDS ORDERED: ESCI-8 PO (10:32)
[2024-07-17] MEDS ORDERED: LEVO100 PO (10:34)
[2024-07-17 11:40] LABS: GLUCOMETER DEV NAME(LOC) POC.BV; POC SARS-COV2 AG, FIA NEGATIVE (NEGATIVE)
== END 2024-07-17 12:12 | DRG 885 ==
LOC: EMS 15:27 → B2X 02-10 10:09
PROVIDERS: ADMIT Psychiatry & Neurology Psychiatry; ATTEND Psychiatry & Neurology Psychiatry
PROC: GZHZZZZ Group Psychotherapy (ICD-10-PCS; principal; 2024-02-10)
PROC: GZ58ZZZ Individual Psychotherapy, Cognitive-Behavioral (ICD-10-PCS; 2024-02-11)
PROC: GZ51ZZZ Individual Psychotherapy, Behavioral (ICD-10-PCS; 2024-03-10)
DX: F25.0 Schizoaffective disorder, bipolar type (principal); R45.851 Suicidal ideations; G20.A1 Parkinson's disease without dyskinesia, without mention of fluctuations; I10 Essential (primary) hypertension; E03.9 Hypothyroidism, unspecified; E78.00 Pure hypercholesterolemia, unspecified; M54.9 Dorsalgia, unspecified; Z20.822 Contact with and (suspected) exposure to COVID-19; E78.5 Hyperlipidemia, unspecified; E87.6 Hypokalemia; F99 Mental disorder, not otherwise specified; F41.9 Anxiety disorder, unspecified; F94.0 Selective mutism; G47.00 Insomnia, unspecified; Z72.0 Tobacco use; Z88.0 Allergy status to penicillin; Z79.899 Other long term (current) drug therapy; Z91.199 Patient's noncompliance with other medical treatment and regimen due to unspecified reason
CPT/HCPCS: 80048; 80053; 80061; 80307; 81003; 83036; 84132; 84443; 85025; 86480; 87081; 87481; 99285; G0480; J1200; J1630; J2060; J2680; J3230

== ENCOUNTER 2024-07-07 00:40 | Emergency (ER) | payer MEDICARE, MEDICAID ==
[~2024-07-07] VITALS: Ht 177.8 cm; Wt 79.5 kg
[2024-07-07 00:55] VITALS: TEMP 97.9
[2024-07-07] MEDS: ACETAMINOPHEN 500 MG TABLET PO ONE (02:23)
[2024-07-07] MEDS: IBUPROFEN 600 MG TABLET PO ONE (02:23)
[2024-07-07 04:02] VITALS: BP 100/66; PULSE 78; RESP 16; O2SAT 98
== END 2024-07-07 04:17 | disposition home or self-care (01) ==
LOC: EMS 00:40
DX: S13.9XXA Sprain of joints and ligaments of unspecified parts of neck, initial encounter (principal); F25.0 Schizoaffective disorder, bipolar type; E78.00 Pure hypercholesterolemia, unspecified; I10 Essential (primary) hypertension; Z88.0 Allergy status to penicillin; E03.9 Hypothyroidism, unspecified; Z90.89 Acquired absence of other organs; G20.A1 Parkinson's disease without dyskinesia, without mention of fluctuations; W06.XXXA Fall from bed, initial encounter; Y93.89 Activity, other specified; Y92.89 Other specified places as the place of occurrence of the external cause; Y99.8 Other external cause status
CPT/HCPCS: 72040; 99283